=== PATIENT | male | born 1960 | race Caucasian/White ===

== ENCOUNTER → 2021-04-03 | Outpatient (CLI) | payer BC, OTHER ==
[~2021-04-03] MED LIST: ASPIRIN81 M2 PO; LOPRESSOR 50 MG50 M1 PO; SIMVASTATIN40 MG PO; VITAMIN D31000 UNI2 PO
== END ==
LOC: SJCVCIMAG 08:00
PROVIDERS: ATTEND Internal Medicine
DX: I08.0 Rheumatic disorders of both mitral and aortic valves (principal); I11.9 Hypertensive heart disease without heart failure; R01.1 Cardiac murmur, unspecified